=== PATIENT | female | born 1985 | race Caucasian/White ===

== ENCOUNTER → 2016-11-21 | Outpatient (CLI) | payer OTHER | LOC: RT 17:28 | PROVIDERS: ATTEND Family Medicine | DX: R00.2 Palpitations (principal) | CPT/HCPCS: 93225 ==

== ENCOUNTER → 2016-12-13 | Outpatient (CLI) | payer OTHER | LOC: RAD 09:27 | PROVIDERS: ATTEND Family Medicine | DX: R06.00 Dyspnea, unspecified (principal) | CPT/HCPCS: 93306 ==